=== PATIENT | female | born 1970 | race Caucasian/White ===

== ENCOUNTER 2016-10-14 23:31 | Emergency (ER) | payer MEDICARE ==
[~2016-10-14] VITALS: Ht 165.1 cm; Wt 75.0 kg
[2016-10-14 23:37] VITALS: BP 115/79; PULSE 92; RESP 18; O2SAT 95
--- NOTE | 2016-10-15 00:01 | PD ---
HPI . Acute alcohol intoxication Chief Complaint: Alcohol/Drug Intoxication Time Seen by Provider: 23:38 Travel History International Travel<30 days: No Contact w/Intl Traveler<30days: No Traveled to known affect area: No History of Present Illness HPI The patient presents to us by EMS after being summoned to the scene bile on forced. Apparently, the patient was found passed out in a public place. She had been incontinent of urine and stool. The police reported that the patient was totally unaware of her circumstances. They initiated a Kiera's Act and had the patient transported to the hospital. The patient is not able to tell us anything further. [facility] Social History Tobacco Use: Yes Allergies-Medications (Allergen,Severity, Reaction): Coded Allergies: No Known Allergies (Unverified , 10/14/16) Reported Meds & Prescriptions Reported Meds & Active Scripts Active No Active Prescriptions or Reported Medications Review of Systems ROS Limitations: Intoxication Physical Exam Narrative GENERAL: The patient is arousable and can tell me her name. She cannot tell me where she lives. She has been incontinent. SKIN: Warm and dry. HEAD: Atraumatic. Normocephalic. EYES: Pupils equal and round. Extraocular movements are intact. ENT: No nasal bleeding or discharge. Mucous membranes pink and moist. NECK: Trachea midline. Neck is supple and nontender. CARDIOVASCULAR: Regular rate and rhythm. RESPIRATORY: No accessory muscle use. GASTROINTESTINAL: Abdomen soft, non-tender, nondistended. MUSCULOSKELETAL: No obvious deformities. No edema. NEUROLOGICAL: Awake and alert. No obvious cranial nerve deficits. Motor grossly within normal limits. Normal speech. PSYCHIATRIC: Intoxicated. Data Data Last Documented VS Vital Signs Date Time Temp Pulse Resp B/P Pulse Ox O2 Delivery O2 Flow Rate FiO2 10/14/16 23:37 92 18 115/79 95 MDM Medical Decision Making Medical Screen Exam Complete: Yes Emergency Medical Condition: Yes Differential Diagnosis Differential diagnosis of altered mental status includes but is not limited to infection, electrolyte abnormality, neurological event, intoxication Narrative Course Patient presents to us the Kiera's Act after being found publicly intoxicated and unable to care for herself. She has no evidence of injury. She will be allowed to sleep it off and will then be discharged. Diagnosis Primary Impression: Acute alcohol intoxication Qualified Code: F10.120 - Acute alcohol intoxication, uncomplicated Scripts No Active Prescriptions or Reported Meds Disposition: 01 DISCHARGE HOME Condition: Stable Jaimee James MD Oct 15, 2016 00:01
== END 2016-10-15 06:10 | disposition home or self-care (01) ==
LOC: NEPA 23:31
DX: F10.129 Alcohol abuse with intoxication, unspecified (principal); N39.498 Other specified urinary incontinence
CPT/HCPCS: 99284